=== PATIENT | male | born 2000 | race Two or more races ===

== ENCOUNTER 2020-11-01 18:56 | Emergency (ER) | payer OTHER ==
[~2020-11-01] VITALS: Ht 167.6 cm; Wt 90.7 kg
[2020-11-01] MEDS ORDERED: MOTION SICKNESS25 M2 PO (21:39)
== END 2020-11-01 22:13 | disposition home or self-care (01) ==
LOC: ER 18:56
DX: R42 Dizziness and giddiness (principal); R53.81 Other malaise

== ENCOUNTER 2020-11-26 19:04 | Emergency (ER) | payer OTHER ==
[~2020-11-26] VITALS: Ht 167.6 cm; Wt 81.6 kg
[~2020-11-26 19:04] MED LIST: MOTION SICKNESS25 M2 PO
== END 2020-11-26 22:03 | disposition home or self-care (01) ==
LOC: ER 19:04
DX: R53.81 Other malaise (principal); F41.8 Other specified anxiety disorders; R20.2 Paresthesia of skin